=== PATIENT | female | born 1980 | race Caucasian/White ===

== ENCOUNTER → 2021-02-03 16:29 | Outpatient (CLI) | payer OTHER, SELFPAY ==
[2018-04-11 08:28] VITALS: BMI 32.6
--- NOTE | 2021-02-03 | EMB_PTH ---
PATIENT: ERIK VICKERS LOC: [facility] U#:[id number] AGE/SX: 45/F ROOM: RE02/03/[address]: Dr. Mars Cornelius MD : 1980 BED: DIS: SPEC #: [id number] RECD: 02/03/21 17:16 STATUS: MATILDA REQ #: [id number] SHEILA: 02/03/21 00:[address]: Mars Cornelius DEPT: SURGICAL PATHOLOGY RECD BY: Dawit Washington ENTERED: 02/04/21 07:29 SP TYPE: ENDOM BX/C GUEVARA DR: Maine Clarke PA-C Tissues: Endometrium, NOS Procedures: Surgery Specimen Level IV HEADER OPERATION: Endometrial biopsy PRE-OP DIAGNOSIS: Menorrhagia TISSUE SUBMITTED: Endometrial biopsy MICROSCOPIC DIAGNOSIS Endometrium, biopsy: Transition endometrium with focal glandular and stromal breakdown. AM:kedar 02/05/2021 MICROSCOPIC DESCRIPTION Slides are reviewed. GROSS DESCRIPTION Received in fixative is one container labeled with the patient's name and designated EMB. The specimen consists of multiple fragments of hemorrhagic soft tissue that in aggregate measure 2.5 x 2 x 0.2 cm. The specimen is totally submitted in one cassette. / SJ:kedar 02/04/21 TC:5 CPT: 56149
[2021-02-09 18:57] LABS: HPV Reflexed? NOT INDICATED
== END ==
PROVIDERS: PCP Family Medicine; Visit Provider Obstetrics & Gynecology
DX: Z12.4 Encounter for screening for malignant neoplasm of cervix (principal); N92.0 Excessive and frequent menstruation with regular cycle
CPT/HCPCS: 88175; 88305; G0145

== ENCOUNTER 2021-02-22 06:53 | Day surgery (SDC) | payer OTHER, SELFPAY ==
[2021-02-19 11:34] LABS: Hematocrit 42.1 % (37-47); Hemoglobin 13.8 g/dL (12.0-15.0); Mean Corp Hgb Conc 32.8 g/dL (32-36); Mean Corpuscular Hgb 30.5 pg (27.0-32.0); Mean Corpuscular Volume 93.1 fL (81-99); Mean Platelet Vol. 10.6 fl (6.2-12.0); Platelet Count 262 K/mm3 (150-450); RBC Distribution Width CV 12.2 % (11.6-14.6); RBC Distribution Width SD 41.6 fl (35.1-43.9); Red Blood Count 4.52 M/mm3 (4.2-5.4); White Blood Count 6.3 K/mm3 (4.4-11.0)
[2021-02-19 11:44] LABS: International Normalized Ratio 1.2; Partial Thromboplast Time 25.8 Seconds (24.1-36.2); Prothrombin Time (Protime)PT. 14.5 SECONDS (11.7-14.9)
[2021-02-19 11:54] LABS: Internal QC Validated? YES +Cl - CLEAR BKGD; Pregnancy, Serum, hCG Quali. NEGATIVE Negative
--- NOTE | 2021-02-21 13:09 | HP.PCM_ITS ---
History and Physical Date of Admission: 02/22/21 Surgical History and Physical Jolanta Jean Baptiste, a 40 year old female 3 0 0 0 3, presents for Dx H/S, D and C and HTA. on February 22, 2021 at 8:30. -- Heavy Menses -- Heavy periods which began 6 months ago. Jolanta claims it started after normal activity and has been present 6 months. It occurs w/ periods. It is located in the uterus. Jolanta characterizes the quality heavy, bleeding. Severity is moderate; Severity is severe. Associated signs and symptoms are severe cramping, clots. Additional comments are: just wants bleeding to stop; Additional comments are: pelvic u/s normal at [facility]; TSH normal. EMBx OK. MEDICATIONS HISTORY: ALLERGIES: NKDA Infections - Chicken pox Illnesses - no serious past illnesses Accidents - no injuries of consequence Hospitalizations - see surgery Review of Systems: GENERAL - Denies fever, or chills SKIN - Denies skin changes EYES - Denies visual changes EARS - Denies difficulty hearing NOSE - Denies nasal congestion or bleeding MOUTH - Denies sore throat or difficulty swallowing NECK - Denies pain or swelling RESPIRATORY - Denies shortness of breath or wheezing CARDIOVASCULAR - Denies palpitations or chest pain GASTROINTESTINAL - Denies nausea, vomiting, diarrhea, constipation GENITOURINARY - Denies dysuria, frequency of urination, incontinence of urine MUSCULOSKELETAL - Denies joint or muscle pain NEUROLOGICAL - Denies localized numbness or weakness PSYCHIATRIC - Denies depression or anxiety ENDOCRINE - Denies heat or cold intolerance, weight loss or gain HEMATO-IMMUNOLOGIC - Denies excesive bleeding with cuts SOCIAL HISTORY: Alcohol Use - denies drinking Smoking - denies smoking Diet - no particular diet Lifestyle - moderate stress lifestyle and Exercise - minimal Seat Belt Use - always Employer - [employer] Job Description - Teacher Illicit Drug Use - denies use of street drugs Sexual Activity - single sexual partner Children Name(s) - Carmen Nuñez Darren Control - Vasectomy FAMILY HISTORY: Family history of Kidney Cancer. Paternal Grandfather: Diabetes. MENSTRUAL HISTORY: LMP Known?- DefiniteAmount/Duration - 4-7 days, Regularity - Regular, Frequency - 28 days, LMP - 02/01/21 PAST PREGNANCIES: Total Pregnancies - 3; Full Term Pregnancies - 3; Premature - 0; Abortions, Induced - 0; Abortions, Spontaneous - 0; Ectopics - 0; Multiple Births - 0; Living Children - 3 SURGICAL HISTORY: 1. Gallbladder 08' 2. 02/26/2010 Hernia Repair and TVT ; Dr. Nieves, Dr. Cornelius, Dr. Taylor PHYSICAL EXAM BP- 110/80 Sitting, Right arm, large cuff Weight- 196.31638 lbs Height- 63.00 inch BMI:34.83 CONSTITUTIONAL - NAD, well nourished, and well developed SKIN - No rash, lesions, or ulcers HEENT - Normocephalic, PERRLA, EOMI NECK - No nodes, no nuchal rigidity and thyroid normal size and texture LYMPH NODES - Palpation of lymph nodes in neck and groins within normal limits LUNGS - CTA x2 without wheezes, crackles or rales CARDIAC - Regular rate and rhythm without rubs, murmurs, or gallops ABDOMEN - Without hepatosplenomegaly, distention, masses, rebound, or guarding; normal bowel sounds; no hernias EXTREMITIES - No edema or calf tenderness NEUROLOGICAL - Cranial nerves II-XII grossly intact PSYCHIATRIC - A and O to time, place, person, mood and affect External Genitial Vagina - non-tender without lesions Urethra/Urethral Meatus - non-tender Bladder - non-tender Vagina - vaginal white are pink and moist without loss of rugae and no evidence of atropy and blood in vagina Cervix - without cervical motion tenderness and has normal size and features without evident lesions Uterus - 5-6 cm in size, mobile and nontender Adnexa - clear without massess or tenderness ASSESSMENT/PLAN: 1. Premenopausal Menorrhagia EMBx ok. Not interested in OCPs or IUD. Discussed HTA and pamphlet given. Discussed RBAs and all questions answered. Plan Dx H/S, D and C and HTA.
[2021-02-22] VITALS (19 sets, daily range): BP systolic 94–131; BP diastolic 50–90; PULSE 43–95; RESP 16; TEMP 36.1–37.2; O2SAT 97–100; BMI 34.6
[2021-02-22] MEDS: Lactated Ringers 1,000 ML 100 ML IV ×2 (07:05→09:24)
[2021-02-22 07:25] LABS: Internal QC Validated? YES +Cl - CLEAR BKGD; Pregnancy, Urine Negative Negative
--- NOTE | 2021-02-22 08:20 | OP.PCM_ITS ---
Problems Associated Problem List Diagnoses (1) Menorrhagia, premenopausal: Report of Operation Date of Procedure: 02/22/21 Pre-Operative Diagnosis: Menorrhagia Post-Operative Diagnosis: Menorrhagia Surgery/Procedure Performed:: Diagnostic Hysteroscopy, Dilation and Curettage, Hydrothermal Ablation Description of Surgical Findings:: 8 cm endometrial cavity without polyps or fibroids present. Cervix which protruded to within 1 cm of the introitus. Rectocele which protruded to within 1 cm of the introitus. Well supported anterior vagina. Laparoscopic assisted vaginal hysterectomy would be feasible if hysterectomy were ever needed. Surgeon: Mars Cornelius Type of Anesthesia: General (LMA) Anesthesiologist: Judd Monson Specimen's removed: Endometrial curettings Estimated Blood Loss (mL): Minimal Fluids Replaced: Crystalloid Description of Procedure: Surgeon: Mars Cornelius MD, FACOG Indication: This is a 40 year old patient who has been having problems with extremely heavy menses. Conservative measures have not been helpful. Endometrial sampling was benign and pelvic ultrasound showed that ablation may be helpful. Pt has been counseled regarding the risks, benefits and alternatives of this procedure and all questions answered. She understands that only about half of patients will have amenorrhea after this procedure. Procedure: Patient taken to the operating room where after induction of general anesthesia the patient was prepped and draped in the usual sterile fashion. Bladder was drained of urine with a catheter. Anterior cervix grasped and cervix was dilated to about 17 Sinhala size. Hysteroscopic hydrothermal ablation (HTA) unit was place in the cervix and the above findings were noted. HTA unit was removed and the uterus was gently curetted removing all contents. An HTA ablation cycle was then carried out at about 90 degrees Centigrade for 10 minutes with virtually no fluid loss during the procedure. After an appropriate cool down the HTA unit was removed with minimal bleeding noted. The patient tolerated the procedure well and was taken to the recovery room in satisfactory condition. Sponge, instruments and needle counts were all correct. There were no apparent complications of the surgery. Cefotan 2 gms IV was given prior to the procedure. Estimated Blood Loss: Minimal Specimen to Pathology: Endometrial Curettings Grafts/Implants Used: None Complications None Admit VTE Documentation VTE Present on Admission: Yes VTE Mechan Device Prophylaxis: SCD's
[2021-02-22] MEDS: Cefotetan 2 GM in 0.9% NS 100 ML IV (08:25)
--- NOTE | 2021-02-22 08:25 | EMB_PTH ---
PATIENT: ERIK VICKERS LOC: [facility] [place] U#:[id number] AGE/SX: 40/F ROOM: RE02/22/[address]: Dr. Mars Cornelius MD : 1980 BED: DIS: 02/22/2021 SPEC #: [id number] RECD: 02/22/21 10:30 STATUS: MATILDA HEATHER #: [id number] SHEILA: 02/22/21 08:[address]: Mars Cornelius DEPT: SURGICAL PATHOLOGY RECD BY: Kitty Prabhakar ENTERED: 02/22/21 13:46 SP TYPE: ENDOM BX/C GUEVARA DR: Maine Clarke PA-C Tissues: Endometrium, NOS Procedures: Surgery Specimen Level IV HEADER OPERATION: Hysteroscopy, D & C hydroablation PRE-OP DIAGNOSIS: Premenopausal menorrhagia TISSUE SUBMITTED: Endometrial curettings MICROSCOPIC DIAGNOSIS Endometrial curettings: Secretory endometrium. See comment. NICOLE:kedar 02/23/2021 COMMENT Clinical correlation and appropriate follow up are necessary. Please make reference to previous specimen ([id number]) endometrium, biopsy with diagnosis of ?transition endometrium with focal glandular and stromal breakdown.? MICROSCOPIC DESCRIPTION Slides are reviewed. GROSS DESCRIPTION Received in fixative is one container labeled with the patient's name and designated endometrial curettings. The specimen consists of multiple fragments of hemorrhagic soft tissue mixed with blood clot that in aggregate measure 7.5 x 3 x 0.3 cm. The entire specimen is submitted in three cassettes. / SJ:kedar 02/22/21 TC:4 CPT: 68298
--- NOTE | 2021-02-22 08:25 | PCM.DC ---
Discharge Instructions Diet Discharge Diet: No restrictions Activity May resume sexual activity in: 4 weeks Additional Activity Instructions:: Nothing in the vagina for 3-4 weeks please; Use Ibuprophen 800 mg orally every 8 hours as needed for pain. Can also add Tylenol 1000 mg every 8 hours if needed for pain. If Ibuprophen and Tylenol are not effective then use the Oxycodone but keep in mind it can cause serious constipation issues. Drink lots of water. Call if bleeding more than a pad per hour. Steps and walking are OK. Dressing / Incision Call your doctor if you observe: Fever of 101 or Higher, Inability to urinate, Inability to have a bowel movement and Using more than 1 pad per hour Follow Up Care Please Follow Up With: Mars Cornelius MD When: Call [phone] for appointment to be seen in 3-4 weeks. Test Results: Test results from this visit will be discussed in further detail at your follow-up appointment, if applicable. Discharge Plan Admission Primary Reason for Your Visit: Endometrial Ablation Attending Provider: Mars Cornelius Primary Care Provider: Maine Clarke Discharge Orders/Prescriptions Prescriptions: New oxycodone 5 mg capsule 5 mg PO Q6H PRN (Reason: pain) 7 Days Qty: 5 RF: 0 No Action NK RF: 0 Referrals / Follow Up: Maine Clarke PA-C [Primary Care Provider] - Disposition Disposition (needs filled in before D/C Order can be placed): Home, self care
[2021-02-22] MEDS: oxyCODONE 5 MG Tablet PO (10:38)
[2021-02-22] MEDS: Acetaminophen 500 MG Tablet 1000 MG PO (12:00)
--- NOTE | 2021-02-22 14:11 | PCM.CONS.GEN ---
Assessment & Plan Assessment/Plan (1) Bradycardia: PLAN: 1. Dizziness Likely multifactorial but also may be a component of vasovagal near syncope. Patient states that she has had episodes of passing out or near passing out with pain or even anxiety. Compromise back patient has been n.p.o. today as well. Orthostatics were rechecked and were normal. Patient reportedly told nursing that she felt fine. No feel any additional inpatient work-up is necessary as symptoms have resolved. Patient did receive a liter of IV fluids which I think probably help alleviate some of her symptoms. Feel patient be safely discharged home and does not necessarily require any additional follow-up. Did recommend patient advised, in the future, to inform anesthesia about fainting spells that she has had with pain in the future. 2. Bradycardia EKG was reviewed and showed normal sinus rhythm with no acute changes. The bradycardia was transient. Given her age and feeling additional work-up is necessary. Thank you for the consultation. HPI Consult Data Date of Consult: 02/22/21 Attending Care Provider: Consult requested for dizziness. HPI Narrative HPI Narrative: ERIK VICKERS, is a 40 F who presents for hysteroscopy for menorrhagia. Patient was monitored and had a heart rate at 1 point in the 40s. Patient went to the restroom and then felt dizzy afterwards. The hospitalist were contacted for evaluation was not the patient would need to be admitted for further evaluation. Upon further discussion, patient states that she has had issues with syncope when she would have extreme pain. She is noted case where she was having gallbladder attacks which would cause her significant pain which were alleviated after she underwent cholecystectomy. Says she had issues with IVs at times and seeing blood. 1 time she cut herself shaving and then passed out after seeing the blood. But also with anxiety during high school, patient with passout learning about sexually transmitted diseases. [facility] Medical History Alcohol use Constipation History of IBS Hypertension Left breast lump Low iron Non-smoker Wears contact lenses Home Medications NK 02/12/21 [History Last Taken Unknown] oxycodone 5 mg PO Q6H PRN 7 Days #5 cap 02/22/21 [Rx Last Taken Unknown] Allergy/AdvReac Type Severity Reaction Status Date / Time No Known Allergies Allergy Verified 02/12/21 11:15 Family History Mother Hypertension Father Hypertension Surgical History History of bladder surgery S/P colonoscopy S/P hernia repair Status post laparoscopic cholecystectomy Social History Smoking Status: Never smoker alcohol intake: never substance use type: does not use ROS ROS Narrative All review of systems were negative except as mentioned above in the history of present illness and the other review of systems. Gastrointestinal Gastrointestinal: Reports abdominal pain; Denies nausea or vomiting Physical Exam Const alert General Appearance: cooperative HEENT normocephalic Resp normal respiratory effort and clear to auscultation bilaterally Cardio regular rate, regular rhythm, S1 normal heart sound and S2 normal heart sound GI soft to palpation Palpation: tender Extremity normal to inspection Neuro Sensorium / Orientation: awake and alert Lab / Micro Data Result Diagrams: 02/19/21 09:59 Labs: Laboratory Results - last 24 hr 02/22/21 07:13 Urine Test Negative Charges/Coding Visit Charges Office Visits / Consults: 16482 OP Consult L4
== END 2021-02-22 14:29 | disposition home or self-care (01) ==
LOC: SDC 06:53 → AC 06:54
PROVIDERS: Anesthesiology; PCP Family Medicine; Referring Provider Obstetrics & Gynecology; Visit Provider Obstetrics & Gynecology
PROC: 0U5B8ZZ Destruction of Endometrium, Via Natural or Artificial Opening Endoscopic (ICD-10-PCS; CPT 58563; principal; 2021-02-22 08:10)
DX: N92.4 Excessive bleeding in the premenopausal period (principal); R42 Dizziness and giddiness; K58.9 Irritable bowel syndrome, unspecified; I10 Essential (primary) hypertension
CPT/HCPCS: 00952; 58563; 36415; 81025; 84703; 85027; 85610; 85730; 86850; 86900; 86901; 87426; 88305; 93005; C9803; J7120; A4216; J2405

== ENCOUNTER → 2022-03-09 | Outpatient (CLI) | payer OTHER, SELFPAY ==
[2022-03-13 07:46] LABS: HPV Reflexed? NOT INDICATED
== END | disposition home or self-care (01) ==
LOC: LABSPEC 11:44
PROVIDERS: PCP Family Medicine; Visit Provider Obstetrics & Gynecology
DX: Z12.4 Encounter for screening for malignant neoplasm of cervix (principal)
CPT/HCPCS: 88175; G0145